=== PATIENT | female | born 1985 ===

== ENCOUNTER 2017-05-09 17:50 | Emergency (ER) | payer SELFPAY ==
[2017-05-09 17:50] VITALS: BMI 26.9
[2017-05-09 18:16] VITALS: BP 107/58; PULSE 78; RESP 18; TEMP 98.4; O2SAT 99
--- NOTE | 2017-05-09 18:45 | ED PDOC ---
Arrival/HPI - General Chief Complaint: Chemical Exposure Time Seen by Provider: 05/09/17 17:55 Historian: Patient - History of Present Illness Associated Symptoms (Text): 05/09/17 18:43 pt states GM was cooking on stove for 1h when CO alarm sounded. police called. apt ventilated and alarm subsided. pt has no c/o at this time but presents with family for eval. Past Medical History - Provider Review Nursing Documentation Reviewed: Yes - Past History Past History: No Previous - Past Medical History Past Medical History: No Previous - Cardiac Hx Cardiac Disorders: No - Pulmonary Hx Asthma: Yes - Neurological Hx Neurological Disorder: No - HEENT Hx HEENT Disorder: No - Renal Other/Comment: cyst on her kidney - Endocrine/Metabolic Hx Endocrine Disorders: No - Hematological/Oncological Hx Anemia: Yes - Integumentary Hx Dermatological Disorder: No - Musculoskeletal/Rheumatological Hx Musculoskeletal Disorders: No - Gastrointestinal Hx Gastritis: Yes - Genitourinary/Gynecological Hx Genitourinary Disorders: No - Psychiatric Hx Psychophysiologic Disorder: No Hx Emotional Abuse: No Hx Physical Abuse: No Hx Substance Use: No - Surgical History Other/Comment: CHILD WITH EPIDURAL - Anesthesia Hx Anesthesia: Yes Hx Anesthesia Reactions: No Hx Malignant Hyperthermia: No - Suicidal Assessment Feels Threatened In Home Enviroment: No Family/Social History - Physician Review Nursing Documentation Reviewed: Yes Family/Social History: No Known Family HX Smoking Status: Never Smoked Hx Alcohol Use: No Hx Substance Use: No Allergies/Home Meds Allergies/Adverse Reactions: Allergies No Known Allergies Allergy (Verified 08/12/16 00:04) Review of Systems - Physician Review All systems were reviewed & negative as marked: Yes - Review of Systems Constitutional: Normal ENT: Normal Respiratory: Normal Cardiovascular: Normal Gastrointestinal: Normal Skin: Normal Neurological: Normal Physical Exam Vital Signs Reviewed: Yes Vital Signs Temp Pulse Resp BP Pulse Ox 05/09/17 18:13 98.4 F 78 18 107/58 L 99 - Systems Exam Mouth: Present: Moist Mucous Membranes Pharnyx: Present: Normal Neck: Present: Normal Range of Motion Respiratory/Chest: Present: Clear to Auscultation, Good Air Exchange. No: Respiratory Distress, Accessory Muscle Use Cardiovascular: Present: Regular Rate and Rhythm, Normal S1, S2. No: Murmurs Abdomen: Present: Normal Bowel Sounds. No: Tenderness, Distention, Peritoneal Signs Neurological: Present: GCS=15 Skin: Present: Warm, Dry, Normal Color. No: Rashes Medical Decision Making ED Course and Treatment: 05/09/17 18:46 pt has no c/o. no labs indicated at this time. was instructed not to use stove until it is repaired. to f/u pmd prn. 05/09/17 18:46 Disposition/Present on Arrival - Present on Arrival Any Indicators Present on Arrival: No - Disposition Have Diagnosis and Disposition been Completed?: Yes Diagnosis: Carbon monoxide exposure Disposition: HOME/ ROUTINE Disposition Time: 18:47 Condition: GOOD Discharge Instructions (ExitCare): Carbon Monoxide Poisoning (ED)
== END 2017-05-09 19:51 | disposition home or self-care (01) ==
LOC: H.ER 17:50
DX: T58.91XA Toxic effect of carbon monoxide from unspecified source, accidental (unintentional), initial encounter (principal)

== ENCOUNTER 2017-05-13 17:56 | Emergency (ER) | payer MEDICAID ==
[2017-05-13 17:56] VITALS: BMI 26.9
[2017-05-13 18:03] VITALS: BP 119/70; PULSE 62; RESP 16; TEMP 98.1; O2SAT 99
--- NOTE | 2017-05-13 18:48 | ED PDOC ---
HPI: Headache Time Seen by Provider: 05/13/17 18:42 Chief Complaint (Nursing): Headache Chief Complaint (Provider): [place] History Per: Patient History/Exam Limitations: no limitations Additional Complaint(s): 4yo F in Ed for evla of [place] noted today at park after walking around and being active- states she felt heat around her head, dizzy and felt dehydrated. states now all symptoms have resolved, but still feel dehydrated. expresses she does not want to stay in ED. denies nausea vomiting fever chills change in speech/ gait/mentation. Past Medical History Reviewed: Historical Data, Nursing Documentation, Vital Signs Vital Signs: Last Vital Signs Temp 98.1 F 05/13/17 18:00 Pulse 62 05/13/17 18:00 Resp 16 05/13/17 18:00 BP 119/70 05/13/17 18:00 Pulse Ox 99 05/13/17 18:00 - Medical History PMH: Anemia, Asthma, Gastritis, Hyperlipidemia - Family History Family History: States: No Known Family Hx - Home Medications Home Medications: Ambulatory Orders Medication Instructions Recorded Cyclobenzaprine [Cyclobenzaprine 10 mg PO BID #14 tab 04/25/16 HCl] Ibuprofen [Motrin] 400 mg PO Q6 #30 tab 04/25/16 Vit#96/Ferrous Fum/FA 1 tab PO DAILY #100 tab 06/26/16 [] Cephalexin [cephalexin] 500 mg PO Q6 #28 cap 07/27/16 Albuterol HFA [Ventolin HFA 90 1 - 2 puff IH Q6 PRN #1 inhaler 08/12/16 mcg/actuation (8 g)] Nitrofurantoin Macrocrystals 100 mg PO BID #14 cap 08/23/16 [Macrobid] Sodium/Potass/Chloride/Dextros 1 each PO DAILY #8 powd.pack 05/13/17 [Pedialyte Powder Packet] - Allergies Allergies/Adverse Reactions: Allergies Allergy/AdvReac Type Severity Reaction Status Date / Time No Known Allergies Allergy Verified 05/13/17 18:00 Review of Systems ROS Statement: Except As Marked, All Systems Reviewed And Found Negative Constitutional: Negative for: Weakness, Malaise Cardiovascular: Negative for: Chest Pain, Palpitations Neurological: Positive for: Headache. Negative for: Weakness, Numbness, Incoordination, Change in Speech, Confusion, Seizures, Altered Mental Status, Dizziness Physical Exam - Reviewed Nursing Documentation Reviewed: Yes Vital Signs Reviewed: Yes - Physical Exam Appears: Positive for: Well, Non-toxic, No Acute Distress Head Exam: Positive for: ATRAUMATIC, NORMAL INSPECTION, NORMOCEPHALIC Skin: Positive for: Normal Color, Warm, DRY Eye Exam: Positive for: EOMI, Normal appearance, PERRL ENT: Positive for: Normal ENT Inspection Neck: Positive for: Normal, Painless ROM Cardiovascular/Chest: Positive for: Regular Rate, Rhythm Respiratory: Positive for: CNT, Normal Breath Sounds Gastrointestinal/Abdominal: Positive for: Normal Exam, Bowel Sounds, Soft Back: Positive for: Normal Inspection Extremity: Positive for: Normal ROM Neurologic/Psych: Positive for: Alert, information architect II-XII (intact), Oriented - ECG O2 Sat by Pulse Oximetry: 99 Medical Decision Making Medical Decision Making: pt most likley dehydrated does not want further ER work up UDIP shows: will rX hydralte and advised to increase H20 intake. advised to have pmd f./u and if worsened to return to Ed. Disposition - Clinical Impression Clinical Impression: Headache - Patient ED Disposition Is Patient to be Admitted: No Counseled Patient/Family Regarding: Studies Performed, Diagnosis, Need For Followup, Rx Given - Disposition Disposition: Routine/Home Disposition Time: 18:50 Condition: STABLE Prescriptions: Sodium/Potass/Chloride/Dextros [Pedialyte Powder Packet] 1 each PO DAILY #8 powd.pack Instructions: Dehydration (ED)
== END 2017-05-13 19:13 | disposition home or self-care (01) ==
LOC: H.ER 17:56
DX: R51 Headache (principal); E86.0 Dehydration